=== PATIENT | female | born 1950 | race Two or more races ===

== ENCOUNTER 2022-01-20 14:06 | Inpatient (IN) | payer OTHER, MEDICAID ==
[~2022-01-20] VITALS: Ht 162.6 cm; Wt 88.0 kg
[2022-01-20] MEDS ORDERED: GADOTERATE MEG 10 MMOL/20ml INJ (0.5MMOL/ml) IV ONE (15:11)
[2022-01-20 18:55] LABS: Basophils # (auto) 0.1 10 ^3/uL (0-0.2); Basophils % (auto) 0.6 % (0.0-2.0); Eosinophils # (auto) 0 10 ^3/uL (0-0.8); Eosinophils % (auto) 0.1 % (0.0-7.0); Hematocrit 45.5 % (36.0-46.0); Hemoglobin 14.7 g/dL (12.2-16.2); Lymphocytes # (auto) 3.2 10 ^3/uL (0.4-5.4); Lymphocytes % (auto) 15.4 % (10.0-50.0); Mean Corpuscular Hemoglobin 26.3 pg (28.0-32.0); Mean Corpuscular Hgb Conc. 32.4 g/dL (32.0-36.0); Mean Corpuscular Volume 81.2 fL (80.0-100.0); Monocytes % (auto) 4.7 % (0.0-12.0); Neutrophils # (auto) 16.5 10 ^3/uL (1.6-8.6); Neutrophils % (auto) 79.2 % (37.0-80.0); Red Cell Distribution Width 14.8 % (11.8-14.3); White Blood Cell 20.8 10^3/uL (4.4-10.8)
[2022-01-20 19:05] LABS: Albumin 3.6 g/dL (3.4-5.0); Calcium 8.6 mg/dL (8.5-10.1)
[2022-01-20 19:07] LABS: BUN/Creatinine Ratio 7.6; Bilirubin, Total 0.4 mg/dL (0.2-1.0)
[2022-01-20 20:05] LABS: Potassium 2.5 mmol/L (3.5-5.1)
[2022-01-20] MEDS ORDERED: SODIUM CHLORIDE 0.9% 1,000 ML IV ONE (20:30)
[2022-01-20] MEDS ORDERED: PIPERACILLIN-TAZOB 3.375GM 100 ML IV ONE (20:30)
[2022-01-20] MEDS ORDERED: IODIXANOL 320MG/ML 100ML BTL IV ONE (21:52)
[2022-01-21 01:57] LABS: Lactic Acid w/Reflex 4.3 mmol/L (0.4-2.0)
[2022-01-21] MEDS ORDERED: MORPHINE SULFATE INJ 2 MG/ml SYRG IV PRN ×2 (03:15)
[2022-01-21] MEDS ORDERED: ONDANSETRON HCL 4 MG/2 ML VIAL IV PRN (03:15)
[2022-01-21] MEDS ORDERED: NITROGLYCERIN 0.4 MG SL TAB SL PRN (03:15)
[2022-01-21] MEDS ORDERED: DEXTROSE (50%) 50ML SYRG IV PRN (03:15)
[2022-01-21 04:05] LABS: Basophils # (auto) 0.1 10 ^3/uL (0-0.2); Eosinophils # (auto) 0 10 ^3/uL (0-0.8); Mean Corpuscular Volume 80.5 fL (80.0-100.0)
[2022-01-21 04:07] LABS: Basophils % (auto) 0.4 % (0.0-2.0); Eosinophils % (auto) 0.3 % (0.0-7.0); Hematocrit 42.5 % (36.0-46.0); Lymphocytes # (auto) 3.6 10 ^3/uL (0.4-5.4); Lymphocytes % (auto) 20.3 % (10.0-50.0); Mean Corpuscular Hemoglobin 26.5 pg (28.0-32.0); Mean Corpuscular Hgb Conc. 32.9 g/dL (32.0-36.0); Monocytes # (auto) 0.9 10 ^3/uL (0-1.3); Monocytes % (auto) 5.2 % (0.0-12.0); Neutrophils # (auto) 13.2 10 ^3/uL (1.6-8.6); Neutrophils % (auto) 73.8 % (37.0-80.0); Red Blood Cells 5.28 10^6/uL (4.0-5.20); Red Cell Distribution Width 14.9 % (11.8-14.3); White Blood Cell 17.9 10^3/uL (4.4-10.8)
[2022-01-21 04:37] LABS: BUN/Creatinine Ratio 7.8; Calcium 8.5 mg/dL (8.5-10.1)
[2022-01-21 04:49] LABS: Potassium 2.3 mmol/L (3.5-5.1)
[2022-01-21] MEDS: SODIUM CHLORIDE 0.9% 1,000 ML IV SCH ×3 (05:07→18:40)
[2022-01-21] MEDS ORDERED: ALBUMIN 5% 250 ML IV ONE (06:00)
[2022-01-21] MEDS: PHENYLEPHRINE IV 250 ML IV SCH ×3 (06:23→16:29)
[2022-01-21] MEDS: POTASSIUM CHL 20MEQ/100ML 100 ML IV SCH ×2 (06:43→12:33)
[2022-01-21] MEDS: ACCU-CHEK COMFORT CURVE STRIP VI SCH ×3 (06:54→18:40)
[2022-01-21] MEDS: InsuLIN REG 1unit/0.01ml Soln (100units/ml) SC SCH ×3 (06:56→18:00)
[2022-01-21] MEDS ORDERED: GASTROGRAFIN 120 ML SOL ONE (08:57)
[2022-01-21] MEDS ORDERED: cefTRIAXone 1GM/50ML D5W 50 ML IV SCH (09:00)
[2022-01-21 09:05] LABS: INR 1.01 (0.9-1.15); Partial Thromboplastin Time 24.2 sec (24.6-33.4)
[2022-01-21] MEDS ORDERED: PANTOPRAZOLE 40 MG/10 ML VIAL INJ IV SCH (10:00)
[2022-01-21] MEDS ORDERED: SODIUM CHLORIDE 0.9% 2,000 ML IV ONE (10:45)
[2022-01-21] MEDS ORDERED: POTASSIUM CHL 20 Meq TABLET PO ONE (11:30)
[2022-01-21] MEDS ORDERED: metroNIDAZOLE 500MG/100ML 100 ML IV ONE (11:30)
[2022-01-21] MEDS ORDERED: POTASSIUM EFFERVESENT TAB 25 MEQ PO ONE (11:30)
[2022-01-21] MEDS ORDERED: metroNIDAZOLE 500MG/100ML 100 ML IV SCH (11:33)
[2022-01-21] MEDS ORDERED: POTASSIUM CHLORIDE 40 MEQ, LIDOCAINE 1% (LOCAL ANESTH.) 4 ML in SODIUM CHL 0.9% 250 ML IV ONE (12:00)
[2022-01-21] MEDS ORDERED: POTASSIUM CHL 20MEQ/100ML 100 ML IV ONE (12:23)
[2022-01-21 13:39] LABS: Albumin 3.1 g/dL (3.4-5.0); Calcium 7.7 mg/dL (8.5-10.1)
[2022-01-21 13:48] LABS: BUN/Creatinine Ratio 9.8; Bilirubin, Total 0.5 mg/dL (0.2-1.0); Total Protein 6.7 g/dL (6.4-8.2)
[2022-01-21 14:21] LABS: Potassium 2.7 mmol/L (3.5-5.1)
[2022-01-21] MEDS: MEROPENEM 500MG IVPB 50 ML IV SCH (14:21)
[2022-01-21] MEDS ORDERED: NOREPINEPHRINE 8 MG/250ML KIT 250 ML IV ONE (16:53)
[2022-01-21] MEDS: NOREPINEPHRINE 8 MG/250ML KIT 250 ML IV SCH (17:21)
[2022-01-21 18:45] VITALS: BP 82/61
[2022-01-21] MEDS ORDERED: PHENYLEPHRINE INJ 80 MG in SODIUM CHL 0.9% 242 ML IV SCH (18:45)
[2022-01-21 19:00] VITALS: BP 82/41
[2022-01-21] MEDS ORDERED: PHENYLEPHRINE IV 250 ML IV ONE (20:11)
[2022-01-21] MEDS ORDERED: POTASSIUM CHLORIDE 60 MEQ, LIDOCAINE 1% (LOCAL ANESTH.) 6 ML in SODIUM CHL 0.9% 500 ML IV ONE (20:15)
[2022-01-21 22:00] VITALS: BP 134/43
[2022-01-21 22:30] VITALS: BP 135/45
[2022-01-22] VITALS (86 sets, daily range): BP systolic 72–168; BP diastolic 26–119
[2022-01-22] MEDS: ACCU-CHEK COMFORT CURVE STRIP VI SCH ×4 (00:09→17:37)
[2022-01-22] MEDS: InsuLIN REG 1unit/0.01ml Soln (100units/ml) SC SCH ×4 (00:12→17:37)
[2022-01-22] MEDS: SODIUM CHLORIDE 0.9% 1,000 ML IV SCH ×2 (02:03→09:17)
[2022-01-22] MEDS: PHENYLEPHRINE IV 250 ML IV SCH ×2 (02:04→04:23)
[2022-01-22 04:08] LABS: Albumin 3.1 g/dL (3.4-5.0); BUN/Creatinine Ratio 14.6; Basophils # (auto) 0.1 10 ^3/uL (0-0.2); Calcium 7.9 mg/dL (8.5-10.1); Eosinophils # (auto) 0 10 ^3/uL (0-0.8); Eosinophils % (auto) 0.2 % (0.0-7.0); Lymphocytes # (auto) 1.9 10 ^3/uL (0.4-5.4); Monocytes # (auto) 1.2 10 ^3/uL (0-1.3); Neutrophils # (auto) 11.3 10 ^3/uL (1.6-8.6); Nucleated Red Blood Cells % 0.1 %; Potassium 3.5 mmol/L (3.5-5.1); White Blood Cell 14.5 10^3/uL (4.4-10.8)
[2022-01-22 04:10] LABS: Basophils % (auto) 0.8 % (0.0-2.0); Hematocrit 39.6 % (36.0-46.0); Hemoglobin 12.8 g/dL (12.2-16.2); Lymphocytes % (auto) 13.1 % (10.0-50.0); Mean Corpuscular Hemoglobin 26.1 pg (28.0-32.0); Mean Corpuscular Hgb Conc. 32.2 g/dL (32.0-36.0); Mean Corpuscular Volume 81.1 fL (80.0-100.0); Monocytes % (auto) 8.3 % (0.0-12.0); Neutrophils % (auto) 77.6 % (37.0-80.0); Red Blood Cells 4.89 10^6/uL (4.0-5.20); Red Cell Distribution Width 14.8 % (11.8-14.3)
[2022-01-22 04:11] LABS: Bilirubin, Total 0.3 mg/dL (0.2-1.0); Total Protein 6.6 g/dL (6.4-8.2)
[2022-01-22] MEDS: NOREPINEPHRINE 8 MG/250ML KIT 250 ML IV SCH (04:23)
[2022-01-22] MEDS: SOD CHL 0.45% 1,000 ML IV SCH ×2 (10:05→23:01)
[2022-01-22] MEDS: MEROPENEM 500MG IVPB 50 ML IV SCH (10:13)
[2022-01-22 10:42] LABS: Urine Bacteria NONE SEEN /hpf (None Seen); Urine Blood 3+ /uL (Negative); Urine Mucus FEW (None Seen); Urine Specific Gravity 1.012 (1.001-1.035); Urine WBC 5 /hpf (0 - 5)
[2022-01-22 11:09] LABS: Protein, Urine 63.5 mg/dL (0.0-11.9)
[2022-01-22] MEDS ORDERED: POTASSIUM CHL 20 Meq TABLET PO ONE (13:30)
[2022-01-23] VITALS (18 sets, daily range): BP systolic 65–189; BP diastolic 35–121
[2022-01-23] MEDS: ACCU-CHEK COMFORT CURVE STRIP VI SCH ×4 (00:09→18:21)
[2022-01-23] MEDS: SOD CHL 0.45% 1,000 ML IV SCH (05:45)
[2022-01-23] MEDS: InsuLIN REG 1unit/0.01ml Soln (100units/ml) SC SCH ×4 (06:00→18:00)
[2022-01-23 06:50] LABS: Basophils # (auto) 0.1 10 ^3/uL (0-0.2); Eosinophils # (auto) 0.2 10 ^3/uL (0-0.8); Eosinophils % (auto) 1.7 % (0.0-7.0); Mean Corpuscular Volume 82.4 fL (80.0-100.0); Monocytes # (auto) 0.8 10 ^3/uL (0-1.3)
[2022-01-23 06:53] LABS: Basophils % (auto) 0.8 % (0.0-2.0); Hematocrit 35.8 % (36.0-46.0); Hemoglobin 11.5 g/dL (12.2-16.2); Lymphocytes # (auto) 2.1 10 ^3/uL (0.4-5.4); Lymphocytes % (auto) 19.7 % (10.0-50.0); Mean Corpuscular Hemoglobin 26.5 pg (28.0-32.0); Mean Corpuscular Hgb Conc. 32.2 g/dL (32.0-36.0); Neutrophils # (auto) 7.6 10 ^3/uL (1.6-8.6); Neutrophils % (auto) 70.8 % (37.0-80.0); Red Blood Cells 4.35 10^6/uL (4.0-5.20); Red Cell Distribution Width 14.7 % (11.8-14.3); White Blood Cell 10.8 10^3/uL (4.4-10.8)
[2022-01-23 06:58] LABS: Calcium 8.2 mg/dL (8.5-10.1); Potassium 3.3 mmol/L (3.5-5.1)
[2022-01-23 07:01] LABS: BUN/Creatinine Ratio 20.6
[2022-01-23] MEDS: MEROPENEM 500MG IVPB 50 ML IV SCH (10:22)
[2022-01-23] MEDS: LACTATED RINGER'S 1,000 ML IV SCH (16:44)
[2022-01-24] MEDS: ACCU-CHEK COMFORT CURVE STRIP VI SCH ×4 (00:53→18:20)
[2022-01-24 04:21] LABS: Basophils # (auto) 0.1 10 ^3/uL (0-0.2); Eosinophils # (auto) 0.2 10 ^3/uL (0-0.8); Lymphocytes # (auto) 2.2 10 ^3/uL (0.4-5.4); Red Cell Distribution Width 14.8 % (11.8-14.3)
[2022-01-24 04:25] LABS: Basophils % (auto) 0.8 % (0.0-2.0); Eosinophils % (auto) 2.1 % (0.0-7.0); Hemoglobin 11.1 g/dL (12.2-16.2); Lymphocytes % (auto) 21.4 % (10.0-50.0); Mean Corpuscular Hemoglobin 26.6 pg (28.0-32.0); Mean Corpuscular Hgb Conc. 32.7 g/dL (32.0-36.0); Mean Corpuscular Volume 81.4 fL (80.0-100.0); Monocytes # (auto) 0.8 10 ^3/uL (0-1.3); Monocytes % (auto) 7.4 % (0.0-12.0); Neutrophils # (auto) 7.1 10 ^3/uL (1.6-8.6); Neutrophils % (auto) 68.3 % (37.0-80.0); Red Blood Cells 4.18 10^6/uL (4.0-5.20); White Blood Cell 10.4 10^3/uL (4.4-10.8)
[2022-01-24] MEDS ORDERED: VANCOMYCIN PER PHARMACY 0 MG IV SCH (04:45)
[2022-01-24] MEDS ORDERED: VANCOMYCIN 1GM/250ML 250 ML IV ONE (04:45)
[2022-01-24 05:00] VITALS: BP 149/61
[2022-01-24 05:02] LABS: Potassium 3.3 mmol/L (3.5-5.1)
[2022-01-24 05:10] LABS: BUN/Creatinine Ratio 13.3; Calcium 7.9 mg/dL (8.5-10.1)
[2022-01-24] MEDS: InsuLIN REG 1unit/0.01ml Soln (100units/ml) SC SCH ×4 (05:45→18:00)
[2022-01-24] MEDS ORDERED: PIPERACILLIN-TAZOB 3.375GM 100 ML IV SCH (06:00)
[2022-01-24 08:10] VITALS: BP 156/71
[2022-01-24] MEDS ORDERED: POTASSIUM CHL 20 Meq TABLET PO ONE (10:30)
[2022-01-24] MEDS ORDERED: cefTRIAXone 1GM/50ML D5W 50 ML IV ONE (10:45)
[2022-01-24 12:05] VITALS: BP 123/51
[2022-01-24] MEDS: LACTATED RINGER'S 1,000 ML IV SCH (14:31)
[2022-01-24] MEDS: metroNIDAZOLE 500 MG TAB PO SCH ×2 (14:31→22:24)
[2022-01-24] MEDS ORDERED: PANTOPRAZOLE 40 MG TAB PO ONE (15:30)
[2022-01-24 16:00] VITALS: BP 123/80
[2022-01-24] MEDS: SUCRALFATE 1 GM TAB PO SCH ×2 (18:19→22:24)
[2022-01-24 22:00] VITALS: BP 164/56
[2022-01-24] MEDS: PANTOPRAZOLE 40 MG TAB PO SCH (22:24)
[2022-01-25] MEDS: ACCU-CHEK COMFORT CURVE STRIP VI SCH ×5 (00:49→23:12)
[2022-01-25 05:00] VITALS: BP 136/89
[2022-01-25] MEDS: InsuLIN REG 1unit/0.01ml Soln (100units/ml) SC SCH ×5 (06:00→23:12)
[2022-01-25] MEDS: SUCRALFATE 1 GM TAB PO SCH ×4 (06:44→21:52)
[2022-01-25] MEDS: metroNIDAZOLE 500 MG TAB PO SCH ×3 (06:44→21:52)
[2022-01-25 08:00] VITALS: BP 135/55
[2022-01-25] MEDS: LACTATED RINGER'S 1,000 ML IV SCH (08:17)
[2022-01-25] MEDS: cefTRIAXone 1GM/50ML D5W 50 ML IV SCH (08:36)
[2022-01-25] MEDS: PANTOPRAZOLE 40 MG TAB PO SCH ×2 (09:49→21:52)
[2022-01-25 12:00] VITALS: BP 120/85
[2022-01-25 16:00] VITALS: BP 128/75
[2022-01-25 21:45] VITALS: BP 148/92
[2022-01-25 22:39] LABS: Eosinophils # (auto) 0.3 10 ^3/uL (0-0.8); Hematocrit 36.5 % (36.0-46.0); Hemoglobin 11.9 g/dL (12.2-16.2); Lymphocytes # (auto) 2.3 10 ^3/uL (0.4-5.4)
[2022-01-25 22:41] LABS: Basophils # (auto) 0.1 10 ^3/uL (0-0.2); Basophils % (auto) 1.1 % (0.0-2.0); Eosinophils % (auto) 2.6 % (0.0-7.0); Lymphocytes % (auto) 18.3 % (10.0-50.0); Mean Corpuscular Hemoglobin 26.4 pg (28.0-32.0); Mean Corpuscular Hgb Conc. 32.6 g/dL (32.0-36.0); Mean Corpuscular Volume 80.9 fL (80.0-100.0); Monocytes # (auto) 0.9 10 ^3/uL (0-1.3); Monocytes % (auto) 7.4 % (0.0-12.0); Neutrophils # (auto) 8.9 10 ^3/uL (1.6-8.6); Neutrophils % (auto) 70.6 % (37.0-80.0); Red Cell Distribution Width 14.7 % (11.8-14.3); White Blood Cell 12.6 10^3/uL (4.4-10.8)
[2022-01-25 22:53] LABS: BUN/Creatinine Ratio 6.5; Calcium 7.8 mg/dL (8.5-10.1); Potassium 3.9 mmol/L (3.5-5.1)
[2022-01-25 23:19] LABS: INR 1.13 (0.9-1.15); Partial Thromboplastin Time 25.3 sec (24.6-33.4)
[2022-01-26 05:19] LABS: Basophils # (auto) 0.1 10 ^3/uL (0-0.2); Basophils % (auto) 1.1 % (0.0-2.0); Eosinophils # (auto) 0.2 10 ^3/uL (0-0.8); Eosinophils % (auto) 2.1 % (0.0-7.0); Hematocrit 38.3 % (36.0-46.0); Hemoglobin 12.3 g/dL (12.2-16.2); Lymphocytes # (auto) 1.8 10 ^3/uL (0.4-5.4); Lymphocytes % (auto) 16.2 % (10.0-50.0); Mean Corpuscular Hgb Conc. 32.3 g/dL (32.0-36.0); Mean Corpuscular Volume 83.5 fL (80.0-100.0); Monocytes # (auto) 0.7 10 ^3/uL (0-1.3); Monocytes % (auto) 6.5 % (0.0-12.0); Neutrophils # (auto) 8.1 10 ^3/uL (1.6-8.6); Neutrophils % (auto) 74.1 % (37.0-80.0); Red Blood Cells 4.58 10^6/uL (4.0-5.20); Red Cell Distribution Width 14.6 % (11.8-14.3); White Blood Cell 10.9 10^3/uL (4.4-10.8)
[2022-01-26] MEDS: metroNIDAZOLE 500 MG TAB PO SCH ×3 (05:23→21:15)
[2022-01-26] MEDS: LACTATED RINGER'S 1,000 ML IV SCH ×2 (05:31→21:16)
[2022-01-26] MEDS: ACCU-CHEK COMFORT CURVE STRIP VI SCH (05:32)
[2022-01-26] MEDS: InsuLIN REG 1unit/0.01ml Soln (100units/ml) SC SCH (05:32)
[2022-01-26] MEDS: SUCRALFATE 1 GM TAB PO SCH ×3 (05:33→17:00)
[2022-01-26 05:36] VITALS: BP 118/57
[2022-01-26 05:37] LABS: BUN/Creatinine Ratio 6.3; Calcium 7.8 mg/dL (8.5-10.1); Potassium 3.8 mmol/L (3.5-5.1)
[2022-01-26 08:00] VITALS: BP 138/69
[2022-01-26] MEDS ORDERED: SODIUM CHLORIDE LOCK 10 ML ONE (09:30)
[2022-01-26] MEDS ORDERED: LIDOCAINE VISCOUS 2% 15ML UD ONE (09:30)
[2022-01-26] MEDS: cefTRIAXone 1GM/50ML D5W 50 ML IV SCH (09:46)
[2022-01-26] MEDS: PANTOPRAZOLE 40 MG TAB PO SCH ×2 (09:46→21:16)
[2022-01-26] MEDS ORDERED: SIMETHICONE 40 MG/0.6 ML ORAL DROP ONE (10:37)
[2022-01-26 12:00] VITALS: BP 131/77
[2022-01-26] MEDS: fentaNYL CITRATE 100 MCG/2 ML VL ONE ×3 (16:32→16:41)
[2022-01-26] MEDS: MIDAZOLAM HCL 5 MG/ML-1ML VIAL ONE ×3 (16:32→16:41)
[2022-01-26] MEDS: diphenhdrAMINE HCL 50 MG/1 ML VL ONE ×2 (16:38→16:40)
[2022-01-26] MEDS: SUCRALFATE 1 GM/10 ML ORAL SUSP PO SCH (21:15)
[2022-01-26 22:00] VITALS: BP 108/76
[2022-01-27] MEDS: LACTATED RINGER'S 1,000 ML IV SCH (00:20)
[2022-01-27 05:00] VITALS: BP 104/76
[2022-01-27 05:26] LABS: Basophils # (auto) 0.1 10 ^3/uL (0-0.2); Basophils % (auto) 1.2 % (0.0-2.0); Eosinophils # (auto) 0.2 10 ^3/uL (0-0.8); Eosinophils % (auto) 1.7 % (0.0-7.0); Hematocrit 33.9 % (36.0-46.0); Hemoglobin 11.2 g/dL (12.2-16.2); Lymphocytes # (auto) 1.9 10 ^3/uL (0.4-5.4); Lymphocytes % (auto) 15.2 % (10.0-50.0); Mean Corpuscular Hemoglobin 27.2 pg (28.0-32.0); Mean Corpuscular Hgb Conc. 33.1 g/dL (32.0-36.0); Mean Corpuscular Volume 82.1 fL (80.0-100.0); Monocytes # (auto) 0.9 10 ^3/uL (0-1.3); Monocytes % (auto) 7.2 % (0.0-12.0); Neutrophils # (auto) 9.3 10 ^3/uL (1.6-8.6); Neutrophils % (auto) 74.7 % (37.0-80.0); Red Blood Cells 4.13 10^6/uL (4.0-5.20); Red Cell Distribution Width 14.9 % (11.8-14.3); White Blood Cell 12.4 10^3/uL (4.4-10.8)
[2022-01-27 05:47] LABS: Calcium 7.8 mg/dL (8.5-10.1); Potassium 3.9 mmol/L (3.5-5.1)
[2022-01-27 05:50] LABS: BUN/Creatinine Ratio 9.7
[2022-01-27] MEDS: SUCRALFATE 1 GM/10 ML ORAL SUSP PO SCH ×2 (06:14→11:27)
[2022-01-27] MEDS: metroNIDAZOLE 500 MG TAB PO SCH ×2 (06:14→14:00)
[2022-01-27 09:00] VITALS: BP 129/75
[2022-01-27] MEDS: PANTOPRAZOLE 40 MG TAB PO SCH (09:31)
[2022-01-27] MEDS: cefTRIAXone 1GM/50ML D5W 50 ML IV SCH (09:31)
== END 2022-01-27 14:00 | disposition home or self-care (01) | DRG 871 ==
LOC: ER 14:06 → TELE 01-21 03:17 → ICU WEST 01-21 17:52 → EAST 01-23 04:05 → TELE-EAST 01-23 05:31
PROVIDERS: ADMIT Nurse Practitioner; ATTEND Internal Medicine Nephrology
PROC: 0DB68ZX Excision of Stomach, Via Natural or Artificial Opening Endoscopic, Diagnostic (ICD-10-PCS; 2022-01-26)
PROC: 0DB98ZX Excision of Duodenum, Via Natural or Artificial Opening Endoscopic, Diagnostic (ICD-10-PCS; principal; 2022-01-26 16:27)
DX: A41.9 Sepsis, unspecified organism (principal); N17.0 Acute kidney failure with tubular necrosis; R65.21 Severe sepsis with septic shock; E87.1 Hypo-osmolality and hyponatremia; K56.600 Partial intestinal obstruction, unspecified as to cause; E87.0 Hyperosmolality and hypernatremia; E87.2 Acidosis; K29.90 Gastroduodenitis, unspecified, without bleeding; D72.829 Elevated white blood cell count, unspecified; K29.70 Gastritis, unspecified, without bleeding; K25.9 Gastric ulcer, unspecified as acute or chronic, without hemorrhage or perforation; E11.9 Type 2 diabetes mellitus without complications; E86.9 Volume depletion, unspecified; E87.6 Hypokalemia; G89.4 Chronic pain syndrome; I10 Essential (primary) hypertension; I25.2 Old myocardial infarction; Z90.710 Acquired absence of both cervix and uterus; Z98.61 Coronary angioplasty status
CPT/HCPCS: 36415; 51702; 71045; 74176; 74250; 76775; 80048; 80053; 81001; 82270; 82570; 82962; 83605; 84132; 84156; 84300; 84484; 85025; 85610; 85730; 86850; 86900; 86901; 87040; 87045; 87081; 87086; 87177; 87427; 87493; 93005; 93306; 96361; 96365; 96367; 96375; 99291; C9113; G0378; J0696; J1815; J2001; J2185; J2250; J2543; J3480; Q9967

== ENCOUNTER 2023-11-27 12:59 | Inpatient (IN) | payer OTHER, MEDICAID ==
[~2023-11-27] VITALS: Ht 160 cm; Wt 93.4 kg
[2023-11-27 14:29] LABS: Basophils # (auto) 0.2 10 ^3/uL (0-0.2); Eosinophils # (auto) 0.1 10 ^3/uL (0-0.8); Hemoglobin 14.3 g/dL (12.2-16.2); Neutrophils # (auto) 9.6 10 ^3/uL (1.6-8.6); Neutrophils % (auto) 65.4 % (37.0-80.0); White Blood Cell 14.7 10^3/uL (4.4-10.8)
[2023-11-27 14:32] LABS: Basophils % (auto) 1.2 % (0.0-2.0); Eosinophils % (auto) 0.6 % (0.0-7.0); Hematocrit 43.3 % (36.0-46.0); Lymphocytes # (auto) 4.1 10 ^3/uL (0.4-5.4); Lymphocytes % (auto) 27.8 % (10.0-50.0); Mean Corpuscular Hemoglobin 25.9 pg (28.0-32.0); Mean Corpuscular Volume 78.6 fL (80.0-100.0); Monocytes # (auto) 0.7 10 ^3/uL (0-1.3); Red Blood Cells 5.51 10^6/uL (4.0-5.20); Red Cell Distribution Width 15.8 % (11.8-14.3)
[2023-11-27 14:43] LABS: Chloride 98 mmol/L (98-107); Potassium 3.6 mmol/L (3.5-5.1); Sodium 138 mmol/L (136-145)
[2023-11-27 14:44] LABS: Anion Gap 18 (5-15); Carbon Dioxide 22 mmol/L (20-30)
[2023-11-27 14:45] LABS: Calcium 9.7 mg/dL (8.7-10.4)
[2023-11-27 14:50] LABS: BUN/Creatinine Ratio 13.9 (10.0-20.0); Blood Urea Nitrogen 62 mg/dL (9-23); Glucose 148 mg/dL (74-106)
[2023-11-27] MEDS ORDERED: cefTRIAXone 1GM/50ML D5W 50 ML IV SCH (17:00)
[2023-11-27] MEDS: LACTATED RINGER'S 1,000 ML IV ONE ×2 (18:45→19:39)
[2023-11-27 19:10] VITALS: PULSE 62; RESP 15; O2SAT 99
[2023-11-27] MEDS ORDERED: ONDANSETRON HCL 4 MG/2 ML VIAL IV PRN (19:15)
[2023-11-27] MEDS ORDERED: DOCUSATE SOD 100 MG CAP PO PRN (19:15)
[2023-11-27 20:40] LABS: Urine Bacteria None Seen /hpf (None Seen)
[2023-11-27 21:06] LABS: Creatinine, Urine 300.09 mg/dL (30.0-125.0)
[2023-11-27 21:09] LABS: Urine Blood Negative /uL (Negative); Urine Clarity Turbid (Clear); Urine Color Yellow (Yellow); Urine Hyaline Cast FEW /lpf (0 - 2); Urine Protein, UAD TRACE (Negative); Urine Specific Gravity 1.021 (1.001-1.035); Urine Urobilinogen 2 mg/dL (Negative); Urine WBC 1 /hpf (0 - 5)
[2023-11-27] MEDS: SODIUM CHLOR 0.9% PF (SALINE LOCK) 10ML VIAL/SYR IV SCH (22:18)
[2023-11-27 23:00] VITALS: BP 117/62; PULSE 68; RESP 23; TEMP 97.8; O2SAT 98
[2023-11-27] MEDS: HYDROcodone-ACET 5/325MG TAB PO PRN (23:53)
[2023-11-28] VITALS (10 sets, daily range): BP systolic 111–138; BP diastolic 50–72; PULSE 54–72; RESP 18–22; TEMP 97.8–98.9; O2SAT 93–100
[2023-11-28] MEDS: cefTRIAXone 1GM/50ML D5W 50 ML IV SCH (00:06)
[2023-11-28] MEDS: ENOXAPARIN SOD 30 MG/0.3 ML SYRINGE SC SCH (09:33)
[2023-11-29] VITALS (7 sets, daily range): BP systolic 109–145; BP diastolic 42–78; PULSE 45–65; RESP 15–20; TEMP 97.4–98.2; O2SAT 95–100
[2023-11-29 06:57] LABS: Basophils # (auto) 0.1 10 ^3/uL (0-0.2); Eosinophils # (auto) 0.3 10 ^3/uL (0-0.8); Hemoglobin 12.2 g/dL (12.2-16.2); Monocytes # (auto) 0.7 10 ^3/uL (0-1.3)
[2023-11-29 07:00] LABS: Basophils % (auto) 0.6 % (0.0-2.0); Eosinophils % (auto) 2.4 % (0.0-7.0); Hematocrit 37.3 % (36.0-46.0); Lymphocytes # (auto) 3.8 10 ^3/uL (0.4-5.4); Lymphocytes % (auto) 34.3 % (10.0-50.0); Mean Corpuscular Hemoglobin 25.4 pg (28.0-32.0); Mean Corpuscular Hgb Conc. 32.8 g/dL (32.0-36.0); Mean Corpuscular Volume 77.5 fL (80.0-100.0); Monocytes % (auto) 6.6 % (0.0-12.0); Neutrophils # (auto) 6.2 10 ^3/uL (1.6-8.6); Neutrophils % (auto) 56.1 % (37.0-80.0); Red Blood Cells 4.81 10^6/uL (4.0-5.20); Red Cell Distribution Width 15.2 % (11.8-14.3); White Blood Cell 11.1 10^3/uL (4.4-10.8)
[2023-11-29 07:12] LABS: Alanine Aminotransferase 10 U/L (7-40); Alkaline Phosphatase 61 U/L (46-116); Anion Gap 8 (5-15); Aspartate Aminotransferase 11 U/L (13-40); BUN/Creatinine Ratio 24.2 (10.0-20.0); Calcium 9.5 mg/dL (8.7-10.4); Carbon Dioxide 29 mmol/L (20-30); Chloride 103 mmol/L (98-107); Glucose 129 mg/dL (74-106); Potassium 3.3 mmol/L (3.5-5.1); Sodium 140 mmol/L (136-145)
[2023-11-29 07:13] LABS: Albumin 3.9 g/dL (3.2-4.8); Bilirubin, Total 0.2 mg/dL (0.2-1.0); Creatine Kinase IFCC 156 U/L (34-145); Total Protein 6.8 g/dL (5.7-8.2)
[2023-11-29 07:19] LABS: Blood Urea Nitrogen 31 mg/dL (9-23)
[2023-11-29 07:40] LABS: Bilirubin, Direct < 0.1 mg/dL (<0.3)
[2023-11-29 18:53] LABS: Urine Bacteria FEW /hpf (None Seen); Urine Blood 1+ /uL (Negative); Urine Clarity Clear (Clear); Urine Color Light-Yellow (Yellow); Urine Protein, UAD Negative (Negative); Urine Specific Gravity 1.017 (1.001-1.035); Urine Urobilinogen Normal (Negative); Urine WBC 1 /hpf (0 - 5)
[2023-11-29 19:06] LABS: Protein, Urine 21.2 mg/dL (0.0-11.9)
[2023-11-29 19:09] LABS: Creatinine, Urine 90.32 mg/dL (30.0-125.0)
[2023-11-29] MEDS: ACETAMINOPHEN 325 MG TAB PO PRN (20:12)
[2023-11-30] VITALS (8 sets, daily range): BP systolic 114–154; BP diastolic 66–98; PULSE 57–67; RESP 16–20; TEMP 97.7–98.7; O2SAT 93–99
[2023-11-30 06:13] LABS: Basophils # (auto) 0.1 10 ^3/uL (0-0.2); Eosinophils # (auto) 0.3 10 ^3/uL (0-0.8)
[2023-11-30 06:15] LABS: Basophils % (auto) 0.7 % (0.0-2.0); Eosinophils % (auto) 2.3 % (0.0-7.0); Hematocrit 37.9 % (36.0-46.0); Hemoglobin 12.5 g/dL (12.2-16.2); Lymphocytes # (auto) 3.7 10 ^3/uL (0.4-5.4); Lymphocytes % (auto) 33.5 % (10.0-50.0); Mean Corpuscular Hgb Conc. 32.9 g/dL (32.0-36.0); Mean Corpuscular Volume 78.9 fL (80.0-100.0); Monocytes # (auto) 0.6 10 ^3/uL (0-1.3); Monocytes % (auto) 5.5 % (0.0-12.0); Neutrophils # (auto) 6.5 10 ^3/uL (1.6-8.6); Nucleated Red Blood Cells % 0.1 %; Red Blood Cells 4.81 10^6/uL (4.0-5.20); Red Cell Distribution Width 15.7 % (11.8-14.3); White Blood Cell 11.1 10^3/uL (4.4-10.8)
[2023-11-30 06:18] LABS: Chloride 106 mmol/L (98-107); Potassium 3.5 mmol/L (3.5-5.1); Sodium 141 mmol/L (136-145)
[2023-11-30 06:19] LABS: Anion Gap 9 (5-15); Calcium 9.3 mg/dL (8.7-10.4); Carbon Dioxide 26 mmol/L (20-30)
[2023-11-30 06:24] LABS: Blood Urea Nitrogen 16 mg/dL (9-23); Glucose 127 mg/dL (74-106)
[2023-11-30] MEDS: ASPirin 81 mg TAB PO SCH (09:41)
[2023-12-01] VITALS (14 sets, daily range): BP systolic 102–198; BP diastolic 53–108; PULSE 51–116; RESP 16–22; TEMP 97.9–98.8; O2SAT 95–99
[2023-12-01 06:54] LABS: Basophils # (auto) 0.1 10 ^3/uL (0-0.2); Eosinophils # (auto) 0.3 10 ^3/uL (0-0.8); Hemoglobin 12.8 g/dL (12.2-16.2); Lymphocytes # (auto) 3.4 10 ^3/uL (0.4-5.4)
[2023-12-01 06:57] LABS: Basophils % (auto) 0.9 % (0.0-2.0); Eosinophils % (auto) 2.2 % (0.0-7.0); Lymphocytes % (auto) 28.4 % (10.0-50.0); Mean Corpuscular Hemoglobin 25.7 pg (28.0-32.0); Mean Corpuscular Hgb Conc. 32.8 g/dL (32.0-36.0); Mean Corpuscular Volume 78.3 fL (80.0-100.0); Monocytes # (auto) 0.7 10 ^3/uL (0-1.3); Monocytes % (auto) 5.9 % (0.0-12.0); Neutrophils # (auto) 7.5 10 ^3/uL (1.6-8.6); Neutrophils % (auto) 62.6 % (37.0-80.0); Nucleated Red Blood Cells % 0.1 %; Red Blood Cells 4.97 10^6/uL (4.0-5.20); Red Cell Distribution Width 15.6 % (11.8-14.3); White Blood Cell 11.9 10^3/uL (4.4-10.8)
[2023-12-01 07:04] LABS: Alanine Aminotransferase 10 U/L (7-40); Alkaline Phosphatase 61 U/L (46-116); Anion Gap 6 (5-15); BUN/Creatinine Ratio 16.5 (10.0-20.0); Blood Urea Nitrogen 16 mg/dL (9-23); Calcium 9.9 mg/dL (8.7-10.4); Carbon Dioxide 26 mmol/L (20-30); Chloride 108 mmol/L (98-107); Glucose 127 mg/dL (74-106); Potassium 4.1 mmol/L (3.5-5.1); Sodium 140 mmol/L (136-145)
[2023-12-01 07:05] LABS: Albumin 3.8 g/dL (3.2-4.8); Aspartate Aminotransferase 9 U/L (13-40); Bilirubin, Total 0.2 mg/dL (0.2-1.0); Total Protein 6.6 g/dL (5.7-8.2)
[2023-12-01 11:04] LABS: INR 1.03 (0.9-1.15); Partial Thromboplastin Time 29.7 SEC (24.5-34.5); Prothrombin Time 10.9 sec (9.3-11.8)
[2023-12-01] MEDS: ANGIOMAX 250 MG VIAL IV ONE (13:41)
[2023-12-01] MEDS: HEPARIN SODIUM (PORCINE) 5000 UNITS/ML 1ML VIAL ONE (13:41)
[2023-12-01] MEDS: VERAPAMIL 2.5MG/ML INJ 2ML VIAL IV ONE (13:41)
[2023-12-01] MEDS: MIDAZOLAM HCL 2MG/2ML 2ml VIAL (1mg/ml) ONE (13:42)
[2023-12-01] MEDS: fentaNYL CITRATE 100 MCG/2 ML VL ONE (13:42)
[2023-12-01] MEDS: SODIUM CHL 0.9% 0 ML ONE (13:42)
[2023-12-01] MEDS: IODIXANOL 320MG/ML 100ML BTL IV ONE (14:14)
[2023-12-01] MEDS: hydrALAZINE HCL 20 MG/ML VL ONE (15:13)
[2023-12-01] MEDS: hydrALAZINE HCL 20 MG/ML VL IV ONE (15:15)
[2023-12-01] MEDS: HEPARIN DRIP/D5W 100UNITS/ML 250 ML IV SCH (17:10)
[2023-12-01 23:08] LABS: Basophils # (auto) 0.1 10 ^3/uL (0-0.2); Basophils % (auto) 0.7 % (0.0-2.0); Monocytes # (auto) 0.8 10 ^3/uL (0-1.3)
[2023-12-01 23:09] LABS: Eosinophils # (auto) 0.1 10 ^3/uL (0-0.8); Eosinophils % (auto) 0.9 % (0.0-7.0); Hematocrit 39.5 % (36.0-46.0); Hemoglobin 12.9 g/dL (12.2-16.2); Lymphocytes # (auto) 2.8 10 ^3/uL (0.4-5.4); Lymphocytes % (auto) 18.8 % (10.0-50.0); Mean Corpuscular Hgb Conc. 32.8 g/dL (32.0-36.0); Mean Corpuscular Volume 79.5 fL (80.0-100.0); Monocytes % (auto) 5.6 % (0.0-12.0); Neutrophils # (auto) 11.1 10 ^3/uL (1.6-8.6); Red Blood Cells 4.97 10^6/uL (4.0-5.20); Red Cell Distribution Width 15.7 % (11.8-14.3)
[2023-12-01 23:30] LABS: INR 1.08 (0.9-1.15); Partial Thromboplastin Time 44.1 SEC (24.5-34.5); Prothrombin Time 11.4 sec (9.3-11.8)
[2023-12-02] VITALS (8 sets, daily range): BP systolic 112–166; BP diastolic 65–111; PULSE 66–101; RESP 18–22; TEMP 79.9–98.6; O2SAT 97–100
[2023-12-02] MEDS: HEPARIN DRIP/D5W 100UNITS/ML 250 ML IV SCH ×2 (00:15→10:16)
[2023-12-02 07:10] LABS: INR 1.07 (0.9-1.15); Partial Thromboplastin Time 45.8 SEC (24.5-34.5); Prothrombin Time 11.3 sec (9.3-11.8)
[2023-12-02] MEDS: METOPROLOL TARTRATE 25 MG TAB PO ONE (12:50)
[2023-12-02] MEDS: amLODIPine BESYLATE 5 MG TAB PO ONE (18:42)
[2023-12-02] MEDS ORDERED: ENOXAPARIN SOD 100 MG/1 ML SYRINGE SC SCH (18:54)
[2023-12-02] MEDS: METOPROLOL TARTRATE 25 MG TAB PO SCH (22:12)
[2023-12-02] MEDS: ATORVASTATIN 20 MG TAB PO SCH (22:12)
[2023-12-02] MEDS: ENOXAPARIN SOD 100 MG/1 ML SYRINGE SC SCH (22:18)
[2023-12-03] MEDS ORDERED: amLODIPine BESYLATE 5 MG TAB PO SCH (10:00)
== END 2023-12-03 00:28 | disposition short-term general hospital (02) | DRG 280 ==
LOC: ER 12:59 → TELE 19:05 → TELE-WESTW 23:00
PROVIDERS: ADMIT Internal Medicine; ATTEND Family Medicine
PROC: B211YZZ Fluoroscopy of Multiple Coronary Arteries using Other Contrast (ICD-10-PCS; principal; 2023-12-01)
PROC: 4A023N7 Measurement of Cardiac Sampling and Pressure, Left Heart, Percutaneous Approach (ICD-10-PCS; 2023-12-01)
DX: I21.4 Non-ST elevation (NSTEMI) myocardial infarction (principal); N17.0 Acute kidney failure with tubular necrosis; N39.0 Urinary tract infection, site not specified; I47.20 Ventricular tachycardia, unspecified; I13.0 Hypertensive heart and chronic kidney disease with heart failure and stage 1 through stage 4 chronic kidney disease, or unspecified chronic kidney disease; D64.9 Anemia, unspecified; G89.4 Chronic pain syndrome; I25.10 Atherosclerotic heart disease of native coronary artery without angina pectoris; N18.2 Chronic kidney disease, stage 2 (mild); I35.1 Nonrheumatic aortic (valve) insufficiency; E78.5 Hyperlipidemia, unspecified; I44.0 Atrioventricular block, first degree; I45.10 Unspecified right bundle-branch block; E66.9 Obesity, unspecified; R00.1 Bradycardia, unspecified; M54.9 Dorsalgia, unspecified; E11.22 Type 2 diabetes mellitus with diabetic chronic kidney disease; I25.2 Old myocardial infarction; Z86.73 Personal history of transient ischemic attack (TIA), and cerebral infarction without residual deficits; Z82.3 Family history of stroke; Z83.3 Family history of diabetes mellitus; Z95.5 Presence of coronary angioplasty implant and graft; I50.9 Heart failure, unspecified
CPT/HCPCS: 36415; 70450; 71045; 76775; 80048; 80053; 80076; 81001; 82306; 82550; 82570; 83605; 83735; 84156; 84300; 84443; 84484; 84550; 85025; 85610; 85730; 87040; 93005; 93306; 93458; 93886; 99152; G0378; J2250; Q9967